=== PATIENT | female | born 1965 | race Caucasian/White ===

== ENCOUNTER 2019-08-05 06:59 | Day surgery (SDC) | payer BC, OTHER ==
[2019-08-05] MEDS ORDERED: Dexamethasone 4 MG/ML 5 ML MDV IVPUSH ONE (07:00)
[2019-08-05] MEDS ORDERED: Rocuronium 100 MG/10 ML MDV IV ONE (07:00)
[2019-08-05] MEDS ORDERED: Propofol 200 MG/20 ML SDV IV ONE (07:00)
[2019-08-05] MEDS ORDERED: Sodium Chloride 0.9% 10 ML Syringe FLUSH PRN (07:00)
[2019-08-05] MEDS ORDERED: Lactated Ringers 1,000 ML IV SCH (07:00)
[2019-08-05] MEDS ORDERED: Ondansetron 4 MG/2 ML SDV IVPUSH ONE (07:00)
[2019-08-05] MEDS ORDERED: Glycopyrrolate 0.2 MG/ML 5 ML MDV IV ONE (07:00)
[2019-08-05] MEDS ORDERED: fentaNYL 100 MCG/2 ML SDV IV ONE (07:00)
[2019-08-05] MEDS ORDERED: Neostigmine Methylsulfate 10 MG/10 ML MDV IVPUSH ONE (07:00)
[2019-08-05] MEDS ORDERED: Sugammadex Sodium 200 MG/2 ML VIAL IV ONE (07:00)
[2019-08-05] MEDS ORDERED: Lactated Ringers 1,000 ML IV ONE (07:00)
[2019-08-05] MEDS ORDERED: Lidocaine 2% 5 ML SDV INJECT ONE (07:00)
[2019-08-05] MEDS ORDERED: ePHEDrine 50 MG/ML SDV IV ONE (07:00)
[2019-08-05] MEDS ORDERED: Midazolam 1 MG/ML 2 ML SDV IV ONE (07:00)
[2019-08-05] MEDS ORDERED: cefOXitin 2 GM Vial IVPUSH ONE (08:45)
[2019-08-05] MEDS ORDERED: cefOXitin 2 GM in Sodium Chloride 0.9% 100 ML IV ONE (08:45)
[2019-08-05] MEDS ORDERED: Lidocaine 1% with EPINEPHrine 1:100,000 20 ML MDV INJECT ONE (09:06)
[2019-08-05] MEDS ORDERED: Bupivacaine 0.5% 30 ML SDV INJECT ONE (09:07)
[2019-08-05] MEDS ORDERED: Acetaminophen/HYDROcodone 325-5 MG Tab PO PRN (09:34)
--- NOTE | 2019-08-05 09:39 | PCM.OPNOTE ---
- General Post-Op/Procedure Note Date of Surgery/Procedure: 08/05/19 Operative Procedure(s): lap cholecystectomy Findings: critical view obtained Pre Op Diagnosis: biliary dyskinesia Post-Op Diagnosis: Same Anesthesia Technique: General ET Tube, Local (10 ml 1 % lido with epi/0.5% buvipicaine) Primary Surgeon: Arturo Anaya Anesthesia Provider: King Jo Pathology: gallbladder Complications: None Condition: Good Free Text/Narrative:: see dictation
[2019-08-05 10:32] VITALS: BP 113/63; PULSE 55
--- NOTE | 2019-08-05 11:55 | OR ---
DATE OF OPERATION: 08/05/2019 SURGEON: Arturo Anaya MD PROCEDURE PERFORMED: Laparoscopic cholecystectomy. PREOPERATIVE DIAGNOSIS: Biliary dyskinesia. POSTOPERATIVE DIAGNOSIS: Biliary dyskinesia. INDICATIONS FOR PROCEDURE: This is a 54-year-old white female who is referred with an episode of some epigastric abdominal pain that appeared to be biliary in nature. Subsequent workup revealed borderline ejection fraction. Given her symptomatology and her workup finding, she was offered and accepted a laparoscopic cholecystectomy. INTRAOPERATIVE FINDINGS: 10 mL of 1:1 mixture of 1% lidocaine with epinephrine, 0.5% bupivacaine were used to infiltrate our trocar sites. Critical view of the gallbladder, cystic duct and cystic artery were obtained. DESCRIPTION OF PROCEDURE: After an excellent general endotracheal anesthesia was administered, the patient was prepped and draped in the usual sterile manner. Local was injected just below the umbilicus where one small incision was then made. Blunt dissection was carried out exposing the midline fascia. Two stay sutures of 0 Vicryl were placed on either side of the fascia, which were then elevated. The fascia was incised, and the peritoneal cavity was entered. After digital palpation to ensure no adhesions, a 5-mm Stephie trocar was inserted into the patient's abdomen. The patient's abdomen was insufflated to 15 mmHg using carbon dioxide. She was then placed in reverse Trendelenburg position with an airplane to the left. Under direct visualization, 5 mm ports were placed; one in the midline epigastrium and two below the right costal margin. This was done using the following technique. Our trocar sites were infiltrated with our local mixture. Stab incision was made with a 15 scalpel blade, and the trocars were inserted. The gallbladder was then grasped, retracted cephalad. The infundibulum was grasped and the cystic duct and cystic artery were then dissected free using blunt dissection. After creating a critical view, two clips were placed proximally on the cystic duct and one distally and likewise on the cystic artery, the process was repeated with two clips proximal, one distal prior to transecting these structures. L hook cautery dissection was carried out to dissect the gallbladder free. There was some spillage of bile due to the thin nature of the gallbladder wall. No stones were noted. The specimen was passed off the field. The area was irrigated. This had a little bit of a fatty infiltration. The gallbladder bed was friable where there was some oozing which we were able to control with electrocautery and as a precaution, a sheet of Surgicel was placed on the floor of the gallbladder bed. After ensuring excellent hemostasis, the area was irrigated until clear and after documenting no further oozing, the trocars were removed and the pneumoperitoneum was released. The periumbilical trocar site was closed with a [id number] 0 Vicryl. [place] were used to close the skin. Dressing was applied. Needle, sponge, and instrument counts were reported as correct. The patient was taken to recovery in good condition. /[id number] /MODL
== END 2019-08-05 11:15 | disposition home or self-care (01) ==
LOC: FB.SDS 06:59
PROVIDERS: ATTEND Surgery
DX: K82.8 Other specified diseases of gallbladder (principal); K82.4 Cholesterolosis of gallbladder
CPT/HCPCS: 47562; 94150; A9270; J0694; J3490; J7120; 88304; J1100; J2001; J2250; J2405; J2704; J2710; J3010

== ENCOUNTER 2024-12-13 01:53 | Emergency (ER) | payer BC ==
[2024-12-13 02:27] LABS: BILIRUBIN,URINE SMALL (NEGATIVE); GLUCOSE,URINE NORMAL (NORMAL); KETONES,URINE 15 mg/dL (NEGATIVE); LEUKOCYTE ESTERASE,URINE MODERATE (NEGATIVE); NITRITE,URINE NEGATIVE (NEGATIVE); OCCULT BLOOD,URINE LARGE (NEGATIVE); PROTEIN,URINE 100 mg/dL (NEGATIVE); UROBILINOGEN,URINE 4 mg/dL (NEGATIVE)
[2024-12-13 02:29] LABS: APPEARANCE,URINE CLOUDY (CLEAR); COLOR,URINE BROWN (YELLOW)
[2024-12-13 02:30] LABS: RBC,URINE >100 (0-5); SQUAMOUS EPITHELIAL CELLS,UR MODERATE (NS,R,O)
[2024-12-13 02:31] LABS: BACTERIA,URINE FEW (NS); MUCUS,URINE MANY (NS)
[2024-12-13 02:32] LABS: CALCIUM OXALATE CRYSTALS,URINE MANY (NS); YEAST,URINE RARE (NS)
[2024-12-13] MEDS: Sodium Chloride 0.9% 10 ML Syringe FLUSH PRN (02:52)
[2024-12-13] MEDS: Ondansetron 4 MG/2 ML SDV IVPUSH ONE (02:52)
[2024-12-13] MEDS: Sodium Chloride 0.9% 1,000 ML IV ONE (02:53)
[2024-12-13 02:57] LABS: BASOPHILS PERCENT AUTO 0.3 % (0.2-1.5); EOSINOPHILS PERCENT AUTO 0.4 % (0.6-8.1); HEMATOCRIT 36.1 % (34.2-48.2); LYMPHOCYTES ABSOLUTE AUTO 0.8 x10-3/uL (1.0-4.4); LYMPHOCYTES PERCENT AUTO 12.1 % (18.4-52.1); MEAN CORPUSCULAR HEMOGLOBIN 28.4 pg (23.9-33.9); MEAN CORPUSCULAR HGB CONC 33.2 g/dL (31.9-34.8); MEAN CORPUSCULAR VOLUME 85.6 fL (76.7-100.5); MEAN PLATELET VOLUME 8.3 fL (7.1-12.4); MONOCYTES ABSOLUTE AUTO 0.5 x10-3/uL (0.3-1.0); MONOCYTES PERCENT AUTO 7.6 % (4.4-15.7); NEUTROPHILS ABSOLUTE AUTO 5.4 x10-3/uL (1.5-6.3); NEUTROPHILS PERCENT AUTO 79.6 % (30.8-76.2); PLATELET COUNT,PLT 165 x10(3)uL (151-488); RED BLOOD CELL COUNT 4.22 x10(6)uL (3.60-5.20); WHITE BLOOD CELL COUNT,WBC 6.7 x10-3/uL (3.0-10.3)
[2024-12-13 02:58] LABS: BLOOD UREA NITROGEN,BUN 16 mg/dL (7-18); CALCIUM 8.6 mg/dL (8.6-10.2); CARBON DIOXIDE,CO2 28 mmol/L (21-32); CHLORIDE,CL 104 mmol/L (100-110); EST CRCL DRUG DOSING (CG) 52.31 mL/min; ESTIMATED GFR 65 mL/min (>60); GLUCOSE RANDOM 132 mg/dL (80-116); POTASSIUM,K 3.2 mmol/L (3.5-5.3); SODIUM,NA 142 mmol/L (135-145)
[2024-12-13] MEDS: HYDROmorphone 2 MG/ML SDV IVPUSH ONE (03:01)
[2024-12-13 03:04] LABS: A/G RATIO 0.9; ALANINE AMINOTRANSFERASE,ALT 32 U/L (12-36); ALBUMIN 3.2 g/dL (3.5-5.2); ALKALINE PHOSPHATASE 84 IU/L (56-112); ASPARTATE AMNIOTRANSFERASE,AST 19 IU/L (5-25); BILIRUBIN TOTAL 0.4 mg/dL (0.1-1.3); PROTEIN TOTAL,TP 6.7 g/dL (6.0-8.0)
[2024-12-13] MEDS: Tamsulosin 0.4 MG Cap.ER PO ONE (04:05)
[2024-12-13] MEDS: Ketorolac 30 MG/ML SDV IVPUSH ONE (04:05)
[2024-12-13 04:44] VITALS: BP 124/66; PULSE 55
== END 2024-12-13 04:35 | disposition home or self-care (01) ==
LOC: FB.ED 01:53
DX: N13.2 Hydronephrosis with renal and ureteral calculous obstruction (principal); K21.9 Gastro-esophageal reflux disease without esophagitis; E66.9 Obesity, unspecified; Z90.49 Acquired absence of other specified parts of digestive tract; Z79.899 Other long term (current) drug therapy; Z68.37 Body mass index [BMI] 37.0-37.9, adult
CPT/HCPCS: 36415; 74176; 80053; 81001; 83735; 85025; 86140; 93005; 93010; 96374; 96375; 99284; 99284-25; A9270-GY; J1171; J1885; J2405; J7030